=== PATIENT | female | born 1995 | race Caucasian/White ===

== ENCOUNTER 2016-04-30 10:34 | Emergency (ER) | payer OTHER ==
[2016-04-30 10:36] VITALS: BP 149/87
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
[2016-04-30] MEDS ORDERED: XYLOCAINE 1%/EPI 1:100,000 INJ ONE (10:41)
== END 2016-04-30 11:26 | disposition home or self-care (01) ==
LOC: EDBD → SUPCPDRO 10:34 → ED 10:34
DX: S41.112A Laceration without foreign body of left upper arm, initial encounter (principal); M79.1 Myalgia; Z79.899 Other long term (current) drug therapy; V89.2XXA Person injured in unspecified motor-vehicle accident, traffic, initial encounter
CPT/HCPCS: 99282